=== PATIENT | male | born 1990 | race African-American/Black ===

== ENCOUNTER 2018-03-27 00:45 | Observation (INO) ==
[2018-03-27] MEDS ORDERED: Ipratropium/Albuterol Neb 3 ML IH ONE (00:53)
[2018-03-27] MEDS ORDERED: Albuterol 2.5 MG/3 ML NEBULIZER IH ONE (00:53)
[2018-03-27] MEDS ORDERED: cefTRIAXone 1,000 MG in Water for inj. (sterile) 20 ML 10 ML IVP ONE (00:53)
[2018-03-27] MEDS ORDERED: methylPREDNISolone 125 MG/2 ML VIAL IVP ONE (00:53)
[2018-03-27] MEDS ORDERED: 0.9 % Sodium Chloride 1,000 ML IVC ONE (00:53)
--- NOTE | 2018-03-27 00:53 | Emergency Department Note ---
Disposition Clinical Impression: Asthma with exacerbation, Asthmatic bronchitis Disposition: Admitted As Inpatient Condition: Serious Referrals: NONE,PCP [Primary Care Provider] - Forms: ED Satisfaction Letter Time of Disposition: 02:21 ( will admit) SOB HPI - General Chief Complaint: ED Shortness of Breath/Dyspnea Stated Complaint: sob Time Seen by Provider: 03/27/18 01:06 Source: patient, EMS Mode of arrival: wheelchair Limitations: no limitations Nursing Notes Reviewed: Yes Vital Signs Reviewed: Yes - History of Present Illness This 27-year-old -[place] male that presented to the emergency department via EMS with complaints of shortness of breath. Patient is actively wheezing on exam. He denies having any history of asthma but he is a smoker, and he states that because of the shortness of breath he has tried to cut down on his smoking. Patient also complains of a productive cough, but no fever or chills. His main complaint is mostly shortness of breath he denies any chest pain. Pt Subjective Complaint: shortness of breath, cough Onset (ago): Just [employer] Context: recent illness, smoke/fume exposure Severity: moderate Consistency/Duration: intermittent Improves with: bronchodilators Worsens with: exertion Known history of: asthma Associated symptoms: Reports: denies other symptoms Treatment prior to arrival: none Cough present: Yes Cough Description: Voluntary Cough Frequency: Intermittent Sputum production: Yes Sputum Amount: Scant Sputum Color: Yellow - Related Data Home Medications Medication Instructions Recorded Confirmed No Known Home Drugs 03/27/18 03/27/18 Allergies Allergy/AdvReac Type Severity Reaction Status Date / Time No Known Allergies Allergy Verified 03/13/18 21:23 Constitutional: Denies: fever, chills, weakness, weight change Eyes: Denies: eye pain, eye discharge, vision change ENT ED: Denies: ear pain, throat pain, dental pain, hearing loss, epistaxis, congestion, dysphagia Cardiovascular: Denies: chest pain, palpitations, dyspnea on exertion, edema, syncope Respiratory: Reports: cough, dyspnea, wheezes. Denies: hemoptysis, stridor Gastrointestinal: Denies: abdominal pain, nausea, vomiting, diarrhea, constipation, hematemesis, melena, hematochezia Genitourinary: Denies: urgency, dysuria, frequency, hematuria Musculoskeletal: Denies: back pain, neck pain, arthralgia, myalgia Integumentary: Denies: rash, abrasion, lesions Neurological: Denies: headache, weakness, numbness, paresthesias, confusion, abnormal gait, vertigo Psychiatric: Denies: anxiety, depression, suicidal thoughts, homicidal thoughts, auditory hallucinations, visual hallucinations Endocrine: Denies: fatigue Hematological/Lymphatic: Denies: easy bleeding, easy bruising Allergic/Immunologic: Denies: facial swelling, urticaria Past Medical History - Past Medical History Medical history: Reports: no medical history Psychiatric history: Reports: no psych history - Social History Smoking Status: Current every day smoker Smokeless Tobacco Status: No Alcohol use: Reports: none Drug use: Reports: none Physical Exam - General Limitations: no limitations General appearance: alert, in no apparent distress - Head Head exam: atraumatic, normocephalic, normal inspection - Eye Eye exam: Present: normal appearance, PERRL, EOMI - Expanded Eye Exam Pupils: Left: reactive - ENT ENT exam: normal exam, normal oropharynx, mucous membranes moist - Expanded ENT Exam External ear exam: Present: normal external inspection Mouth exam: Present: normal external inspection Teeth exam: Present: normal inspection Throat exam: Present: normal inspection - Neck Neck exam: Present: normal inspection, full ROM, trachea midline - Chest Chest inspection: Present: normal inspection, symmetric chest wall rise - Respiratory Respiratory exam: Present: wheezes, other (Patient has decreased breath sounds audible bilaterally, positive expiratory wheezing. He does not appear at present to be in any acute respiratory distress. He is able to talk and speak in full sentences) - Cardiovascular Cardiovascular exam: Present: regular rate, normal rhythm, normal heart sounds - Abdominal Exam Abdominal exam: Present: soft, Non-Tender. Absent: tenderness, distention, guarding, rebound, rigidity - Extremities Exam Extremities exam: Present: normal inspection, full ROM. Absent: tenderness, pedal edema - Expanded Upper Extremity Exam Shoulder exam: Present: normal inspection, full ROM Arm exam: Present: normal inspection, full ROM Elbow exam: Present: normal inspection, full ROM Forearm/Wrist exam: Present: normal inspection, full ROM Hand exam: Present: normal inspection, full ROM Vascular exam: Normal: capillary refill, radial pulse - Expanded Lower Extremity Exam Hip/Pelvis exam: Present: normal inspection, full ROM Upper leg exam: Present: normal inspection, full ROM Knee exam: Present: normal inspection, full ROM Lower leg exam: Present: normal inspection, full ROM Ankle exam: Present: normal inspection, full ROM Foot/toe exam: Present: normal inspection, full ROM Neurovascular/Tendon exam: Absent: motor deficit, sensory deficit, tendon deficit - Back Exam Back exam: Present: normal inspection, full ROM. Absent: tenderness - Neurological Exam Neurological exam: Present: alert, oriented X3 - Expanded Neurological Exam Patient oriented to: Present: person, place, time Coma Scale Eye Opening: Spontaneous Coma Scale Motor Response: Obeys Commands Coma Scale Verbal Response: Oriented Coma Scale Total: 15 - Psychiatric Psychiatric exam: Present: normal affect, normal mood - Skin Skin exam: Present: warm, dry, intact, normal color Course Vital Signs Temperature 99.1 F 03/27/18 00:47 Pulse Rate 106 03/27/18 00:47 Respiratory Rate 18 03/27/18 00:47 Blood Pressure 134/89 03/27/18 00:47 O2 Sat by Pulse Oximetry 93 03/27/18 00:47 Temperature 99.1 F 03/27/18 00:47 Pulse Rate 105 03/27/18 02:05 Respiratory Rate 18 03/27/18 02:05 Blood Pressure 151/96 03/27/18 02:05 O2 Sat by Pulse Oximetry 93 03/27/18 02:05 Oxygen Delivery Oxygen Delivery Room Air Shortness of Breath/Dyspnea - [facility] Narrative Medical decision making narrative: Labs are obtained including CBC chemistry troponin I d-dimer and a chest x-ray portable blood culture 2 was obtained. Patient was given Solu-Medrol 125 mg IV, after blood cultures he was given Rocephin 2 g IV. DuoNeb 1 and albuterol treatment 1 was also given. Patient was also given a bolus of normal saline, 1000 mL bolus. On reexamination on approximately 2:19 AM after total of 3 treatments to here and one by EMS, patient still is tight on exam and has decreased breath sounds in his wheezing his oxygen saturation on room air is around 93%. I spoke with Dr. Mar and patient will be admitted for overnight observation, with IV steroids and IV antibiotics. - Differential Diagnosis Likely: acute exacerbation of chronic obstructive airways disease, pneumonia, asthma with exacerbation - Medical Records Medical records reviewed: Yes I reviewed the patient's medical records. - Lab Data Lab results reviewed: Yes I reviewed the patient's lab results. Result diagrams: 03/27/18 01:36 03/27/18 01:36 Lab Results 03/27/18 03/27/18 03/27/18 Range/Units 01:36 01:36 01:36 WBC 12.3 H (4.3-11.1) K/mcL RBC 5.69 H (4.19-5.50) M/mcL Hgb 18.1 H (12.9-16.9) g/dL Hct 51.6 H (37.5-50.1) % MCV 90.7 (83.0-100.0) fL MCH 31.8 (28.0-33.3) pg MCHC 35.1 (31.6-35.5) g/dL RDW 11.2 L (11.5-14.5) % Plt Count 274 (140-400) K/mcL MPV 10.6 (9.4-12.4) fL Immature Gran % 0.2 (0-4) % Seg Neutrophils % 74.8 % Lymphocytes % 13.1 % Monocytes % 7.6 % Eosinophils % 3.7 % Basophils % 0.6 % Neutrophils # 9.2 H (1.6-8.9) K/mcL Lymphocytes # 1.6 (0.6-4.6) K/mcL Monocytes # 0.9 (0.0-1.3) K/mcL Eosinophils # 0.5 (0.0-0.6) K/mcL Basophils # 0.1 (0.0-0.2) K/mcL PT 12.7 H (9.4-12.1) Seconds INR 1.1 D-Dimer 343 (0-500) ng/mLFEU Sodium 138 (136-145) mEq/L Potassium 4.0 (3.5-5.1) mEq/L Chloride 102 (98-107) mEq/L Carbon Dioxide 28 (23-29) mEq/L BUN 16 (6-20) mg/dL Creatinine 1.03 (0.70-1.30) mg/dL Est GFR ( Amer) > 60 (> 60) Est GFR (Non-Af Amer) > 60 (> 60) BUN/Creatinine Ratio 16 (6-26) Glucose 96 (70-105) mg/dL Calculated Osmolality 287 (280-300) Lactic Acid (0.5-2.2) mmol/L Calcium 9.0 (8.6-10.3) mg/dL Total Bilirubin 0.4 (0.3-1.0) mg/dL Direct Bilirubin 0.1 (0.0-0.2) mg/dL Indirect Bilirubin 0.3 (0.0-1.2) mg/dL AST 18 (13-39) Units/L ALT 17 (7-52) Units/L Alkaline Phosphatase 61 (34-104) Units/L Troponin I < 0.03 (< 0.04) ng/mL B-Natriuretic Peptide (Less than 100) pg/mL Serum Total Protein 7.2 (6.4-8.9) g/dL Albumin 4.2 (3.5-5.7) g/dL Globulin 3.0 (2.4-3.5) g/dL Albumin/Globulin Ratio 1.4 (1.1-2.2) 03/27/18 03/27/18 Range/Units 01:36 01:36 WBC (4.3-11.1) K/mcL RBC (4.19-5.50) M/mcL Hgb (12.9-16.9) g/dL Hct (37.5-50.1) % MCV (83.0-100.0) fL MCH (28.0-33.3) pg MCHC (31.6-35.5) g/dL RDW (11.5-14.5) % Plt Count (140-400) K/mcL MPV (9.4-12.4) fL Immature Gran % (0-4) % Seg Neutrophils % % Lymphocytes % % Monocytes % % Eosinophils % % Basophils % % Neutrophils # (1.6-8.9) K/mcL Lymphocytes # (0.6-4.6) K/mcL Monocytes # (0.0-1.3) K/mcL Eosinophils # (0.0-0.6) K/mcL Basophils # (0.0-0.2) K/mcL PT (9.4-12.1) Seconds INR D-Dimer (0-500) ng/mLFEU Sodium (136-145) mEq/L Potassium (3.5-5.1) mEq/L Chloride (98-107) mEq/L Carbon Dioxide (23-29) mEq/L BUN (6-20) mg/dL Creatinine (0.70-1.30) mg/dL Est GFR ( Amer) (> 60) Est GFR (Non-Af Amer) (> 60) BUN/Creatinine Ratio (6-26) Glucose (70-105) mg/dL Calculated Osmolality (280-300) Lactic Acid 1.0 (0.5-2.2) mmol/L Calcium (8.6-10.3) mg/dL Total Bilirubin (0.3-1.0) mg/dL Direct Bilirubin (0.0-0.2) mg/dL Indirect Bilirubin (0.0-1.2) mg/dL AST (13-39) Units/L ALT (7-52) Units/L Alkaline Phosphatase (34-104) Units/L Troponin I (< 0.04) ng/mL B-Natriuretic Peptide 10 (Less than 100) pg/mL Serum Total Protein (6.4-8.9) g/dL Albumin (3.5-5.7) g/dL Globulin (2.4-3.5) g/dL Albumin/Globulin Ratio (1.1-2.2) - Radiology Data Radiology results reviewed: Yes I reviewed the patient's radiology results. Chest x-ray per radiology reading shows no acute abnormality - EKG Data EKG attestation: Yes I reviewed and interpreted this EKG. EKG shows normal: Reports: sinus rhythm Rate: Reports: tachycardia Rhythm: Reports: NSR [place]/QRS: Reports: normal
[2018-03-27 01:44] LABS: Basophils # 0.1 K/mcL (0.0-0.2); Basophils % 0.6 %; Eosinophils # 0.5 K/mcL (0.0-0.6); Eosinophils % 3.7 %; Hematocrit 51.6 % (37.5-50.1); Hemoglobin 18.1 g/dL (12.9-16.9); Immature Granulocytes % 0.2 % (0-4); Lymphocytes # 1.6 K/mcL (0.6-4.6); Lymphocytes % 13.1 %; Mean Corpuscular HGB Conc 35.1 g/dL (31.6-35.5); Mean Corpuscular Hemoglobin 31.8 pg (28.0-33.3); Mean Corpuscular Volume 90.7 fL (83.0-100.0); Mean Platelet Volume 10.6 fL (9.4-12.4); Monocytes # 0.9 K/mcL (0.0-1.3); Monocytes % 7.6 %; Neutrophils # 9.2 K/mcL (1.6-8.9); Platelet Count 274 K/mcL (140-400); Red Blood Count 5.69 M/mcL (4.19-5.50); Red Cell Distribution Width 11.2 % (11.5-14.5); Segmented Neutrophils % 74.8 %
[2018-03-27 01:57] LABS: INR 1.1; Prothrombin Time 12.7 Seconds (9.4-12.1)
[2018-03-27 02:03] LABS: Troponin I < 0.03 ng/mL (< 0.04)
[2018-03-27 02:05] LABS: Alanine Aminotransferase 17 Units/L (7-52); Albumin 4.2 g/dL (3.5-5.7); Albumin/Globulin Ratio 1.4 (1.1-2.2); Alkaline Phosphatase 61 Units/L (34-104); Aspartate Amino Transferase 18 Units/L (13-39); BUN/Creatinine Ratio 16 (6-26); Bilirubin,Direct 0.1 mg/dL (0.0-0.2); Bilirubin,Indirect 0.3 mg/dL (0.0-1.2); Bilirubin,Total 0.4 mg/dL (0.3-1.0); Blood Urea Nitrogen 16 mg/dL (6-20); Carbon Dioxide 28 mEq/L (23-29); Chloride 102 mEq/L (98-107); Glucose 96 mg/dL (70-105); Osmolality,Calculated 287 (280-300); Sodium 138 mEq/L (136-145); Total Protein 7.2 g/dL (6.4-8.9); eGFR For Non-African Americans > 60 (> 60)
[2018-03-27] MEDS ORDERED: Naloxone 0.4 MG/ML INJ IVP PRN ×2 (02:13→03:00)
[2018-03-27] MEDS ORDERED: Azithromycin 500 MG in D5% in Water 250 ML IVPB SCH (03:00)
[2018-03-27] MEDS: Azithromycin 500 MG in D5% in Water 250 ML IVPB SCH (03:09)
[2018-03-27] MEDS ORDERED: Albuterol 2.5 MG/3 ML NEBULIZER IH SCH (04:00)
[2018-03-27] MEDS ORDERED: MethylPREDNISolone 40 MG/ML VIAL IVP SCH ×2 (08:00)
[2018-03-27] MEDS ORDERED: Levalbuterol Neb 1.25 MG/3 ML ONE (09:33)
[2018-03-27] MEDS: Levalbuterol Neb 1.25 MG/3 ML IH PRN ×2 (09:42→15:10)
--- NOTE | 2018-03-27 14:43 | Internal Med History&Physical ---
Date of Encounter: 03/27/18 Time of Encounter: 14:10 Assessment and Plan (1) Asthmatic bronchitis Current visit: Yes Status: Acute He has been started on antibiotics through emergency room. IV steroids have also been ordered. Will add Symbicort. Recheck labs in a.m. Qualifiers: Asthma severity: unspecified severity Asthma complication type: uncomplicated Qualified Code(s): J45.909 - Unspecified asthma, uncomplicated (2) Elevated hemoglobin Current visit: Yes Status: Acute Recheck CBC in a.m. A 6 minute walk will be done to evaluate for hypoxemia. Internal Medicine - H&P: HPI Chief complaint: Dyspnea Admitted From: Emergency Dept Plans for Post Hospital Care: Home History of present illness: Mr. Nuñez is a 27 year old male who came to emergency room complaining of inc reased dyspnea over the preceding 1-2 weeks. He reports experiencing chest "tightness" last evening. He has had minimal cough and no significant productivity. He denies other infectious symptoms such as sore throat, rhinorrhea, vomiting or diarrhea. He was evaluated in emergency room and felt to have asthmatic bronchitis and was admitted to [facility] floor for ongoing care needs. His respiratory history is significant for smoking since age 19. He denies known pulmonary disease. He reports no new environmental exposure to toxins. He reports no family members or contacts having similar symptoms. Past Med Surg Social Fam HX - Past Medical History Medical history: no medical history Psychiatric history: no psych history - Social History Smoking Status: Current every day smoker Smokeless Tobacco Status: No Alcohol use: none Drug use: none - Family History Mother History Unknown: Yes Internal Medicine - H&P: Meds No Known Home Drugs 03/27/18 [History] 3 Allergy/AdvReac Type Severity Reaction Status Date / Time No Known Allergies Allergy Verified 03/13/18 21:23 All Systems PM: A 10-system review of systems was performed and is negative for pertinent findings except as documented above in the HPI. Review of systems: Gen.: His weight has been stable the past few months Cardiovascular: He denies hypertension [place] heart failure angina DVT or pulmonary embolus Respiratory: As per history of present illness GI: He denies disorders of his liver gallbladder or exocrine pancreas : He denies hematuria dysuria or kidney stones Neurologic: He denies large distribution strokes or seizures. Endocrine: He denies diabetes thyroid disease or hyperlipidemia Hematology/oncology: Denies blood disorders cancers or anemia. He was unaware he had elevated hemoglobin on labs in ER and on CBC done 03/01/2017. Psychiatric: He denies anxiety depression or other mental health issues [place] skeletal: He denies arthritis gout or other bone joint or muscle disorders. - Constitutional Vitals: Temp Pulse Resp BP Pulse Ox 98.2 F 109 20 146/84 91 03/27/18 13:32 03/27/18 13:32 03/27/18 13:32 03/27/18 13:32 03/27/18 13:32 Exam: Gen.: He is a well-developed well-nourished black male resting in bed who appears slightly dyspneic HEENT: Head is atraumatic and normocephalic. Eyes: EOMI. There is no scleral icterus. Mouth: Mucosa is moist. Neck: Supple and nontender. There is no thyromegaly or adenopathy noted. Heart: Regular without murmurs gallops or ectopics Lungs: He has prolonged expiratory phase and mild diffuse wheezing bilaterally. Abdomen: Soft and nontender. No masses or guarding are noted. Extremities: There is no cyanosis edema or clubbing noted. Dorsalis pedis and posterior tibial pulses are 1-2 over 2 bilaterally. Neurologic: Mental status: He is talkative and a good historian. Cranial nerves: Smile is symmetric. Forehead wrinkles bilaterally. Tongue protrudes midline. EOMI. Motor: There is no pronator drift. Cerebellar: Finger to nose is intact bilaterally. Skin: Warm and dry Internal Med - H&P Results - Labs CBC & Chem 7: 03/27/18 01:36 03/27/18 01:36 Labs: Short CBC 03/27/18 Range/Units 01:36 WBC 12.3 H (4.3-11.1) K/mcL Hgb 18.1 H (12.9-16.9) g/dL Hct 51.6 H (37.5-50.1) % Plt Count 274 (140-400) K/mcL Neutrophils # 9.2 H (1.6-8.9) K/mcL BMP 03/27/18 01:36 Sodium 138 Potassium 4.0 Chloride 102 Carbon Dioxide 28 BUN 16 Creatinine 1.03 Glucose 96 Calcium 9.0 Cardiac Enzymes 10/28/18 Range/Units 01:36 Troponin I < 0.03 (< 0.04) ng/mL Liver Function 03/27/18 Range/Units 01:36 Total Bilirubin 0.4 (0.3-1.0) mg/dL Direct Bilirubin 0.1 (0.0-0.2) mg/dL AST 18 (13-39) Units/L ALT 17 (7-52) Units/L Alkaline Phosphatase 61 (34-104) Units/L Albumin 4.2 (3.5-5.7) g/dL - Impressions ITS Impressions Chest X-Ray 03/27/18 00:53 IMPRESSION: No acute disease D/ / Albino Garcia MD / Albino Garcia MD Interpreting Provider: Albino Garcia MD - VTE Reasons for not Prescribing Prophylaxis: Treatment not Indicated - Low risk for VTE
[2018-03-27] MEDS: Budesonide/Formoterol 160/4.5 1 PUFF INH IH SCH ×2 (15:10→21:47)
[2018-03-27] MEDS: methylPREDNISolone 125 MG/2 ML VIAL IVP SCH (16:28)
[2018-03-27] MEDS: Lactobacillus 1 EACH CAP.SPRINK PO SCH (22:08)
[2018-03-28] MEDS: methylPREDNISolone 125 MG/2 ML VIAL IVP SCH ×3 (00:07→16:18)
[2018-03-28] MEDS: Azithromycin 500 MG in D5% in Water 250 ML IVPB SCH (03:15)
[2018-03-28 06:20] LABS: Basophils % 0.1 %; Hematocrit 46.7 % (37.5-50.1); Hemoglobin 16.4 g/dL (12.9-16.9); Immature Granulocytes % 0.5 % (0-4); Lymphocytes # 1.1 K/mcL (0.6-4.6); Mean Corpuscular HGB Conc 35.1 g/dL (31.6-35.5); Mean Corpuscular Hemoglobin 31.7 pg (28.0-33.3); Mean Corpuscular Volume 90.2 fL (83.0-100.0); Mean Platelet Volume 11.1 fL (9.4-12.4); Monocytes # 1.2 K/mcL (0.0-1.3); Monocytes % 5.7 %; Neutrophils # 18.9 K/mcL (1.6-8.9); Platelet Count 312 K/mcL (140-400); Red Blood Count 5.18 M/mcL (4.19-5.50); Red Cell Distribution Width 11.5 % (11.5-14.5); Segmented Neutrophils % 88.7 %
[2018-03-28 06:59] LABS: BUN/Creatinine Ratio 16 (6-26); Blood Urea Nitrogen 13 mg/dL (6-20); Calcium 9.7 mg/dL (8.6-10.3); Carbon Dioxide 25 mEq/L (23-29); Chloride 104 mEq/L (98-107); Glucose 139 mg/dL (70-105); Osmolality,Calculated 288 (280-300); Potassium 5.1 mEq/L (3.5-5.1); Sodium 138 mEq/L (136-145); Thyroid Stimulating Hormone 0.087 mcIU/mL (0.340-5.600); eGFR For Non-African Americans > 60 (> 60)
[2018-03-28 07:42] VITALS: BP 133/84
[2018-03-28] MEDS: Lactobacillus 1 EACH CAP.SPRINK PO SCH (08:53)
[2018-03-28] MEDS ORDERED: cefTRIAXone 1,000 MG in Water for inj. (sterile) 20 ML 10 ML IVP SCH (09:00)
[2018-03-28] MEDS: Budesonide/Formoterol 160/4.5 1 PUFF INH IH SCH ×2 (09:49→21:02)
--- NOTE | 2018-03-28 10:07 | Discharge Summary ---
Orders not resulted at time of discharge: Pending orders 03/27/18 01:25 Culture,Blood [BC] Stat Date of Encounter: 03/28/18 Time of Encounter: 09:54 - Discharge Diagnosis (1) Asthmatic bronchitis Priority: Primary Status: Acute Qualifiers: Asthma severity: unspecified severity Asthma complication type: uncomplicated Qualified Code(s): J45.909 - Unspecified asthma, uncomplicated (2) Elevated hemoglobin Priority: Secondary Status: Resolved (3) Low TSH level Priority: Secondary Status: Acute Hospital course: Mr. Nuñez is a 28 year old male who came to emergency room complaining of increased dyspnea over the preceding 1-2 weeks. He reports experiencing chest "tightness" last evening. He has had minimal cough and no significant productivity. He denies other infectious symptoms such as sore throat, rhinorrhea, vomiting or diarrhea. He was evaluated in emergency room and felt to have asthmatic bronchitis and was admitted to [facility] floor for ongoing care needs. Initial orders were written by the emergency room physician. I saw him on March 27 and performed the history and physical. He was started on IV steroids and antibiotics. I added Symbicort. He was clinically improved when I saw him on March 28 with decreased wheezing. WBC had risen to 21.3 with left shift present but I felt this was due in part to IV steroid use. He remained afebrile during his hospital stay. He felt improved and stable for discharge home when I saw him March 28. He will continue with antibiotic and probiotic for 3 additional days at discharge. He will also be given prednisone and albuterol inhaler. Room air oximetry on 6 minute walk showed saturation satisfactory without need for supplemental oxygen. TSH returned suppressed at 0.087. I told him he should follow with a PCP to have this further evaluated. Hemoglobin decreased to normal at 16.4 on follow-up labs March 28. His PCP can monitor this. I encouraged him to become a nonsmoker. He will follow with a PCP within 1 week. - Time Spent with Patient Total time spent providing and/or coordinating discharge services: - Discharge Medications Prescriptions: Cefuroxime PO [Ceftin] 500 mg PO Q12HR #6 tablet Albuterol Sulfate [Proair Hfa] 2 puff IH Q4H #1 inh Azithromycin [Zithromax] 250 mg PO DAILY #3 tablet Lactobacillus [Culturelle] 1 each PO BID #6 cap.sprink predniSONE [PredniSONE] 10 mg PO BIDWM #6 tablet Home Medications: Albuterol Sulfate [Proair Hfa] 2 puff IH Q4H #1 inh 03/28/18 [Rx] Azithromycin [Zithromax] 250 mg PO DAILY #3 tablet 03/28/18 [Rx] Cefuroxime PO [Ceftin] 500 mg PO Q12HR #6 tablet 03/28/18 [Rx] Lactobacillus [Culturelle] 1 each PO BID #6 cap.sprink 03/28/18 [Rx] predniSONE [PredniSONE] 10 mg PO BIDWM #6 tablet 03/28/18 [Rx] Allergies/Adverse Reactions: Allergy/AdvReac Type Severity Reaction Status Date / Time No Known Allergies Allergy Verified 03/13/18 21:23 Date of admission: 03/27/18 02:38 Primary care physician: PCP NONE - Constitutional Vitals: Temp Pulse Resp BP Pulse Ox 98.1 F 87 16 133/84 92 03/28/18 06:00 03/28/18 06:00 03/28/18 06:00 03/28/18 06:00 03/28/18 08:35 - Patient Status Disposition: Home, Self-Care Condition: Serious - Discharge Instructions Follow Up With: NONE,PCP [Primary Care Provider] - 1 week - Diet and Activity Activity: resume usual activities as tolerated Diet: advance to your usual diet - VTE Reasons for not Prescribing Prophylaxis: Treatment not Indicated - Low risk for VTE
== END 2018-03-28 18:35 | disposition home or self-care (01) ==
LOC: INPPIK 00:45 → EMEROOPIK 00:45 → INPPIK 02:45
PROVIDERS: ADMIT Internal Medicine; ATTEND Internal Medicine